=== PATIENT | female | born 1955 | race African-American/Black ===

== ENCOUNTER 2018-11-24 14:26 | Observation (INO) | payer SELFPAY ==
[2018-11-24] MEDS ORDERED: NORMAL SALINE 500 ML IV ONE (14:53)
--- NOTE | 2018-11-24 14:55 | ER Document Report ---
ED Medical Screen (RME) - General Chief Complaint: Weakness Stated Complaint: LEFT LEG WEAKNESS Time Seen by Provider: 11/24/18 14:40 Primary Care Provider: ANUM CARR MD [Primary Care Provider] - Follow up as needed Notes: Patient is a 63-year-old female that presents to the emergency department for chief complaint of left leg weakness, and constipation states she is been constipated for about a week or 2. States the weakness in the leg was about 3 days ago. ROS: Other than noted above, the 12 point review of systems was reviewed with the patient and were negative, all pertinent findings are included in the HPI. PHYSICAL EXAMINATION: Vital signs reviewed. GENERAL: Elderly female, no acute distress HEAD: Atraumatic, normocephalic. EYES: Pupils equal round extraocular movements intact, conjunctiva are normal. ENT: Nares patent NECK: Normal range of motion CV: Heart rate tachycardic, regular rhythm LUNGS: No respiratory distress Musculoskeletal: Left leg weakness compared to the right, decreased sensation on the right, good range of motion of the upper extremities NEUROLOGICAL: Normal speech PSYCH: Normal mood, normal affect. MDM: Patient seen and examined for rapid initial assessment. Vital signs reviewed. A comprehensive ED assessment and evaluation of the patient, analysis of test results and completion of the medical decision making process will be conducted by additional ED providers. *Note is created using voice recognition software and may contain spelling, syntax or grammatical errors. - Related Data Allergies/Adverse Reactions: enalapril Allergy (Verified 11/24/18 14:38) Past Medical History - Social History Frequency of alcohol use: None Drug Abuse: None - Past Medical History Cardiac Medical History: Reports: Hx Hypercholesterolemia Endocrine Medical History: Reports: Hx Diabetes Mellitus Type 1 Renal/ Medical History: Denies: Hx Peritoneal Dialysis Past Surgical History: Reports: Hx Bowel Surgery - polyp removal Physical Exam - Vital signs Vitals: Temp Pulse Resp BP Pulse Ox 98.3 F 113 H 18 144/70 H 98 11/24/18 14:27 11/24/18 14:27 11/24/18 14:11/24/18 14:11/24/18 14:27 Course - Vital Signs Vital signs: Temp Pulse Resp BP Pulse Ox 98.3 F 113 H 18 144/70 H 98 11/24/18 14:11/24/18 14:27 11/24/18 14:27 11/24/18 14:27 11/24/18 14:27 Doctor's Discharge - Discharge Referrals: ANUM CARR MD [Primary Care Provider] - Follow up as needed
--- NOTE | 2018-11-24 15:36 | RADIOLOGY REPORT (SQ) ---
EXAM DESCRIPTION: CHEST SINGLE VIEW COMPLETED DATE/TIME: 11/24/2018 3:25 pm REASON FOR STUDY: left leg weakness COMPARISON: None. EXAM PARAMETERS: NUMBER OF VIEWS: One view. TECHNIQUE: Single frontal radiographic view of the chest acquired. RADIATION DOSE: NA LIMITATIONS: None. FINDINGS: LUNGS AND PLEURA: No opacities, masses or pneumothorax. No pleural effusion. MEDIASTINUM AND HILAR STRUCTURES: No masses. Contour normal. HEART AND VASCULAR STRUCTURES: Heart normal in size. Normal vasculature. BONES: No acute findings. HARDWARE: None in the chest. OTHER: No other significant finding. IMPRESSION: NO ACUTE RADIOGRAPHIC FINDING IN THE CHEST. TECHNICAL DOCUMENTATION: JOB ID: [id number] [employer]- All Rights Reserved Reading location - IP/workstation name: [email or web address]
--- NOTE | 2018-11-24 15:47 | RADIOLOGY REPORT (SQ) ---
EXAM DESCRIPTION: CT HEAD WITHOUT COMPLETED DATE/TIME: 11/24/2018 3:38 pm REASON FOR STUDY: left leg weakness COMPARISON: None. TECHNIQUE: Axial images acquired through the brain without intravenous contrast. Images reviewed wi th bone, brain and subdural windows. Additional sagittal and coronal reconstructions were generated. Images stored on PACS. All CT scanners at this facility use dose modulation, iterative reconstruction, and/or weight based d osing when appropriate to reduce radiation dose to as low as reasonably achievable (ALARA). [facility]: Dose Right [facility]: CareDose [facility]: Dose Right [facility]: Teradose 4D [facility]: Smart [employer]atter[employer] RADIATION DOSE: CT Rad equipment meets quality standard of care and radiation dose reduction techniq ues were employed. CTDIvol: 53.2 mGy. DLP: 1070 mGy-cm. mGy. LIMITATIONS: None. FINDINGS: VENTRICLES: Normal size and contour. CEREBRUM: No masses. No hemorrhage. No midline shift. No evidence for acute infarction. Normal gra y/white matter differentiation. No areas of low density in the white matter. CEREBELLUM: No masses. No hemorrhage. No alteration of density. No evidence for acute infarction. EXTRAAXIAL SPACES: No fluid collections. No masses. ORBITS AND GLOBE: No intra- or extraconal masses. Normal contour of globe without masses. CALVARIUM: No fracture. PARANASAL SINUSES: No fluid or mucosal thickening. SOFT TISSUES: No mass or hematoma. OTHER: No other significant finding. IMPRESSION: No acute intracranial pathology. EVIDENCE OF ACUTE STROKE: NO. COMMENT: Quality ID # [id number]: Final reports with documentation of one or more dose reduction techniques (e.g., Automated exposure control, adjustment of the mA and/or kV according to patient size, use of iterative reconstruction technique) TECHNICAL DOCUMENTATION: JOB ID: [id number] [employer]- All Rights Reserved Reading location - IP/workstation name: [email or web address]
[2018-11-24 16:03] LABS: ABSOLUTE BASOPHILS # (AUTO) 0.1 10^3/uL (0.0-0.2); ABSOLUTE EOSINOPHILS # (AUTO) 0.1 10^3/uL (0.0-0.6); ABSOLUTE LYMPHOCYTES (AUTO) 2.8 10^3/uL (0.5-4.7); ABSOLUTE MONOCYTES (AUTO) 0.7 10^3/uL (0.1-1.4); ABSOLUTE NEUT (AUTO) 8.8 10^3/uL (1.7-8.2); BASOPHILS % (AUTO) 0.8 % (0-2); EOSINOPHILS % (AUTO) 0.7 % (0-6); HEMATOCRIT 36.8 % (36.0-47.0); HEMOGLOBIN 12.6 g/dL (12.0-15.5); LYMPHOCYTES % (AUTO) 22.6 % (13-45); MEAN CORPUSCULAR HEMOGLOBIN 28.6 pg (27.0-33.4); MEAN CORPUSCULAR HGB CONC 34.3 g/dL (32.0-36.0); MEAN CORPUSCULAR VOLUME 83 fl (80-97); MONOCYTES % (AUTO) 5.4 % (3-13); PLATELET COUNT 359 10^3/uL (150-450); RED BLOOD COUNT 4.42 10^6/uL (3.72-5.28); RED CELL DISTRIBUTION WIDTH 15.2 % (11.5-14.0); SEGMENTED NEUTROPHILS % (AUTO) 70.5 % (42-78); TOTAL CELLS COUNTED % (AUTO) 100 %; WHITE BLOOD COUNT 12.5 10^3/uL (4.0-10.5)
[2018-11-24 16:11] LABS: INTERNATIONAL RATION (INR) 0.93; PROTHROMBIN TIME 12.9 SEC (11.4-15.4)
[2018-11-24 16:20] LABS: ALANINE AMINOTRANSFERASE 14 U/L (9-52); ALBUMIN 3.9 g/dL (3.5-5.0); ALKALINE PHOSPHATASE 100 U/L (38-126); ANION GAP 13 (5-19); ASPARTATE AMINO TRANSFERASE 23 U/L (14-36); BILIRUBIN,DIRECT 0.4 mg/dL (0.0-0.4); BILIRUBIN,TOTAL 0.8 mg/dL (0.2-1.3); BLOOD UREA NITROGEN 18 mg/dL (7-20); CALCIUM 10.3 mg/dL (8.4-10.2); CARBON DIOXIDE 30 mmol/L (22-30); CHLORIDE 93 mmol/L (98-107); CREATINE KINASE 116 U/L (30-135); GLUCOSE 127 mg/dL (75-110); POTASSIUM 3.8 mmol/L (3.6-5.0); SODIUM 135.5 mmol/L (137-145); TOTAL PROTEIN 7.5 g/dL (6.3-8.2)
[2018-11-24 16:33] LABS: CREATINE KINASE MB 0.79 ng/mL (<4.55)
[2018-11-24 16:34] LABS: TROPONIN I < 0.012 ng/mL
--- NOTE | 2018-11-24 17:19 | ER Document Report ---
ED General - General Chief Complaint: Weakness Stated Complaint: LEFT LEG WEAKNESS Time Seen by Provider: 11/24/18 14:40 Primary Care Provider: ANUM CARR MD [Primary Care Provider] - Follow up as needed - [facility] Notes: Patient is a 63-year-old female with a history of diabetes and previously on insulin who presents the emergency department complaining of loss of strength and ability to ambulate to the left lower extremity. Patient states that she woke up Thursday morning not being able to use the left leg. Patient states that she does not have any associated pain. She has been eating and drinking without difficulty. She is still urinating normally, but reports constipation. Patient states that she did urinate on herself in the waiting room, but occurred because she could not get to the bathroom. She otherwise does not take any medicines orally at this time. Patient states that she has not been taking her insulin as she has not been eating as much. She does not have a primary care provider and lives at home with her . She is accompanied today by her family members who state that this is not normal for her not being able to ambulate and walk. No other concerns or complaints. She is not on any blood thinning medication. Denies any headache, fever, head injury, LOC, neck pain, changes in vision/speech/mentation/hearing, URI, sore throat, chest pain, palpitations, syncope, cough, shortness of breath, wheeze, dyspnea, abdominal pain, nausea/vomiting/diarrhea, urinary retention, dysuria, hematuria, loss of control of bowel or bladder, saddle anesthesia, or rash. - Related Data Allergies/Adverse Reactions: enalapril Allergy (Verified 11/24/18 14:38) Past Medical History - Social History Smoking Status: Current Some Day Smoker Frequency of alcohol use: None Drug Abuse: None Family History: Reviewed & Not Pertinent Patient has suicidal ideation: No Patient has homicidal ideation: No - Past Medical History Cardiac Medical History: Reports: Hx Hypercholesterolemia Endocrine Medical History: Reports: Hx Diabetes Mellitus Type 1 Renal/ Medical History: Denies: Hx Peritoneal Dialysis Past Surgical History: Reports: Hx Bowel Surgery - polyp removal Review of Systems - Review of Systems -: Yes All other systems reviewed and negative Physical Exam - Vital signs Vitals: Temp Pulse Resp BP Pulse Ox 98.3 F 113 H 18 144/70 H 98 11/24/18 14:27 11/24/18 14:27 11/24/18 14:27 11/24/18 14:27 11/24/18 14:27 - Notes Notes: PHYSICAL EXAMINATION: GENERAL: Well-appearing, well-nourished and in no acute distress. A&Ox4. Answers questions appropriately. HEAD: Atraumatic, normocephalic. Non-tender. EYES: Pupils equal round and reactive to light, extraocular movements intact, sclera anicteric, conjunctiva are normal. No nystagmus. vis murrya grossly intact. ENT: EAC clear b/l. TM's intact b/l without erythema, fluid, or perforation. Nares patent and without discharge. oropharynx clear without exudates. No tonsilar hypertrophy or erythema. Moist mucous membranes. No sinus tenderness. NECK: Normal range of motion, supple without lymphadenopathy. No rigidity/meningismus. No midline tenderness. LUNGS: Breath sounds clear to auscultation bilaterally and equal. No wheezes rales or rhonchi. HEART: Regular rate and rhythm without murmurs, rubs, gallops. ABDOMEN: Soft, nontender, nondistended abdomen. No guarding, no rebound. Normal bowel sounds present. No CVA tenderness bilaterally. Musculoskeletal: LLE: FROM to passive. Strength 0/5 aside from 4/5 foot dorsiflexion. Subjective dec sensation Lt worse than Rt. Ext's otherwise b/l: FROM to passive/active. Strength 5+/5. No deficits noted. No bony tenderness of extremities. Back: FROM. Strength 5+/5. Non-tender. No erythema or obvious deformity. Extremities: No cyanosis, clubbing, or edema b/l. Peripheral pulses 2+. Capillary refill less than 2 seconds. NEUROLOGICAL: NIH 4 (all with LLE deficits). GCS 15. Cranial nerves grossly intact. Normal speech. PSYCH: Normal mood, normal affect. SKIN: Warm, Dry, normal turgor, no rashes or lesions noted. Course - Re-evaluation Re-evalutation: 11/24/18 17:[address] Sanford. Admit for possible CVA. Spoke with Dr. Denise who accepted pt to [facility]. Patient is an afebrile, well-hydrated, 63-year-old female who presents emergency department with left lower extremity weakness, possibly secondary to CVA. Vitals are acceptable. PE as noted on exam. Labs and imaging were unremarkable including a CT scan. Patient is nontoxic-appearing and is tolerating p.o. without difficulty. Patient and family in agreement with admission and plan. - Vital Signs Vital signs: Temp Pulse Resp BP Pulse Ox 98.3 F 106 H 16 180/84 H 99 11/24/18 14:27 11/24/18 16:59 11/24/18 16:59 11/24/18 16:59 11/24/18 16:59 - Laboratory Result Diagrams: 11/24/18 15:41 11/24/18 15:41 Laboratory results interpreted by me: 11/24/18 11/24/18 15:41 15:41 WBC 12.5 H RDW 15.2 H Absolute Neutrophils 8.8 H Sodium 135.5 L Chloride 93 L Creatinine 0.31 L Glucose 127 H Calcium 10.3 H Discharge - Discharge Clinical Impression: Weakness of left leg Condition: Stable Disposition: ADMITTED INPATIENT Admitting Provider: Hospitalist - Dr. Denise Unit Admitted: IMCU Referrals: ANUM CARR MD [Primary Care Provider] - Follow up as needed
--- NOTE | 2018-11-24 17:48 | ER Document Report ---
Doctor's Note Notes: I personally and independently obtained patient history and examined the patient in conjunction with the APC and agree with the assessment, treatment plan and disposition of the patient as recorded by the APC, and have reviewed the APC's note. HISTORY OF PRESENT ILLNESS: Patient is a 63-year-old female that presents to the emergency department for chief complaint of left leg weakness. Patient apparently is been having symptoms for approximately 4 days now. She also reports she may have had low potassium recently. ROS: Constitutional: Negative for fever. Cardiovascular: Negative for chest pain. Respiratory: Negative for shortness of breath. Gastrointestinal: Negative for vomiting or abdominal pain Musculoskeletal: Negative for arm, leg or back pain Skin: Negative for rash. Neurological: Positive for left leg weakness Other than noted above, the 12 point review of systems was reviewed with the patient and were negative, all pertinent findings are included in the HPI. PHYSICAL EXAMINATION: Vital signs reviewed, nursing noted reviewed. GENERAL: elderly female, no acute distress HEAD: Atraumatic, normocephalic. EYES: Eyes appear normal, conjunctiva are normal. ENT: nares patent, oropharynx clear without exudates. Moist mucous membranes. NECK: Normal range of motion, supple without lymphadenopathy LUNGS: Breath sounds clear to auscultation bilaterally and equal. No wheezes rales or rhonchi. HEART: Heart rate tachycardic, regular rhythm ABDOMEN: Soft, nontender, normoactive bowel sounds. No rebound, guarding, or rigidity. No masses appreciated. EXTREMITIES: Nontender, good range of motion, no pitting or edema. NEUROLOGICAL: Left leg weakness, and decreased sensation in the left leg compared to the right. Upper extremities appeared unremarkable, no facial droop noted. No significant dysarthria. PSYCH: Normal mood, normal affect. SKIN: Warm, Dry, normal turgor, no rashes or lesions noted on exposed skin MEDICAL DECISION MAKING: Patient seen and examined, vital signs reviewed, on my exam the patient did have significant weakness in the left lower extremity as well as left leg numbness, patient was worked up for CVA, likely occurred a few days ago, CT imaging was negative, for any hemorrhage, and blood work was essentially unremarkable, recommend admission to the hospital, given stroke symptoms, for further workup and evaluation and physical therapy evaluation Please review detail APC documentation. *Note is created using voice recognition software and may contain spelling, syntax or grammatical errors. Laboratory 11/24/18 11/24/18 11/24/18 15:41 15:41 15:41 WBC 12.5 H RBC 4.42 Hgb 12.6 Hct 36.8 MCV 83 MCH 28.6 MCHC 34.3 RDW 15.2 H Plt Count 359 Seg Neutrophils % 70.5 Lymphocytes % 22.6 Monocytes % 5.4 Eosinophils % 0.7 Basophils % 0.8 Absolute Neutrophils 8.8 H Absolute Lymphocytes 2.8 Absolute Monocytes 0.7 Absolute Eosinophils 0.1 Absolute Basophils 0.1 PT 12.9 INR 0.93 Sodium 135.5 L Potassium 3.8 Chloride 93 L Carbon Dioxide 30 Anion Gap 13 BUN 18 Creatinine 0.31 L Est GFR ( Amer) > 60 Est GFR (Non-Af Amer) > 60 Glucose 127 H Hemoglobin A1c % Calcium 10.3 H Total Bilirubin 0.8 Direct Bilirubin 0.4 Neonat Total Bilirubin Not Reportable Neonat Direct Bilirubin Not Reportable Neonat Indirect Bili Not Reportable AST 23 ALT 14 Alkaline Phosphatase 100 Creatine Kinase 116 CK-MB (CK-2) Troponin I Total Protein 7.5 Albumin 3.9 Triglycerides Cholesterol LDL Cholesterol Direct VLDL Cholesterol HDL Cholesterol TSH 11/24/18 11/24/18 11/24/18 15:41 15:41 15:41 WBC RBC Hgb Hct MCV MCH MCHC RDW Plt Count Seg Neutrophils % Lymphocytes % Monocytes % Eosinophils % Basophils % Absolute Neutrophils Absolute Lymphocytes Absolute Monocytes Absolute Eosinophils Absolute Basophils PT INR Sodium Potassium Chloride Carbon Dioxide Anion Gap BUN Creatinine Est GFR ( Amer) Est GFR (Non-Af Amer) Glucose Hemoglobin A1c % Calcium Total Bilirubin Direct Bilirubin Neonat Total Bilirubin Neonat Direct Bilirubin Neonat Indirect Bili AST ALT Alkaline Phosphatase Creatine Kinase CK-MB (CK-2) 0.79 Troponin I < 0.012 Total Protein Albumin Triglycerides 107 Cholesterol 228.65 H LDL Cholesterol Direct 159 H VLDL Cholesterol 21.0 HDL Cholesterol 38 L TSH 1.36 11/24/18 15:41 WBC RBC Hgb Hct MCV MCH MCHC RDW Plt Count Seg Neutrophils % Lymphocytes % Monocytes % Eosinophils % Basophils % Absolute Neutrophils Absolute Lymphocytes Absolute Monocytes Absolute Eosinophils Absolute Basophils PT INR Sodium Potassium Chloride Carbon Dioxide Anion Gap BUN Creatinine Est GFR ( Amer) Est GFR (Non-Af Amer) Glucose Hemoglobin A1c % 6.4 H Calcium Total Bilirubin Direct Bilirubin Neonat Total Bilirubin Neonat Direct Bilirubin Neonat Indirect Bili AST ALT Alkaline Phosphatase Creatine Kinase CK-MB (CK-2) Troponin I Total Protein Albumin Triglycerides Cholesterol LDL Cholesterol Direct VLDL Cholesterol HDL Cholesterol TSH Chest X-Ray 11/24/18 14:52 IMPRESSION: NO ACUTE RADIOGRAPHIC FINDING IN THE CHEST. Head CT 11/24/18 14:53 IMPRESSION: No acute intracranial pathology. EVIDENCE OF ACUTE STROKE: NO.
[2018-11-24] MEDS ORDERED: HYDRALAZINE HCL INJ/PF 20 MG/1 ML SDV IV PRN (18:04)
--- NOTE | 2018-11-24 18:15 | PDOC H&P ---
History of Present Illness Admission Date/PCP: ANUM CARR MD Patient complains of: left leg weakness History of Present Illness: VALENTIN LINDSEY is a 63 year old female who does not see a regular physician due to not having insurance who presented with left leg weakness. She only reports a PMH of gestational DM but says she still uses a 70/30 insulin 2 units bid occasionally and also reports a previous history of hypothyroidism. Denies any other medication aside from 70/30. Patient was apparently fine until Thursday morning when she woke up and noticed she has left leg weakness associated with some numbness. She says she did not see a doctor because she does not have insurance. She has beenhaving issues with ambulating at home and was prompted by family to go to the ER today where she was noted to have left leg weakness. No speech problems. She denies headache or dizziness. She also reports of having had a dental abscess in August treated with amoxicillin. Past Medical History Cardiac Medical History: Reports: Hyperlipidema Endocrine Medical History: Reports: Diabetes Mellitus Type 1 Social History Smoking Status: Current Some Day Smoker Family History Family History: Reviewed & Not Pertinent Parental Family History Reviewed: Yes - no premature CAD Children Family History Reviewed: No Sibling(s) Family History Reviewed.: No Medication/Allergy Allergies/Adverse Reactions: enalapril Allergy (Verified 11/24/18 14:38) Review of Systems All systems: reviewed and no additional remarkable complaints except as stated - as mentioned in HPI Physical Exam Vital Signs: Temp Pulse Resp BP Pulse Ox 98.3 F 106 H 16 180/84 H 99 11/24/18 14:27 11/24/18 16:59 11/24/18 16:59 11/24/18 16:59 11/24/18 16:59 Intake & Output 11/23/18 11/24/18 11/25/18 06:59 06:59 06:59 Intake Total 500 Balance 500 Weight 88 lb 10.013 oz General appearance: PRESENT: no acute distress, well-developed, well-nourished Head exam: PRESENT: atraumatic, normocephalic Eye exam: PRESENT: conjunctiva pink, EOMI, PERRLA. ABSENT: scleral icterus Ear exam: PRESENT: normal external ear exam Mouth exam: PRESENT: moist, tongue midline Neck exam: ABSENT: carotid bruit, JVD, lymphadenopathy, thyromegaly Respiratory exam: PRESENT: clear to auscultation avinash. ABSENT: rales, rhonchi, wheezes Cardiovascular exam: PRESENT: RRR. ABSENT: diastolic murmur, rubs, systolic murmur Pulses: PRESENT: normal dorsalis pedis pul GI/Abdominal exam: PRESENT: normal bowel sounds, soft. ABSENT: distended, guarding, mass, organolmegaly, rebound, tenderness Rectal exam: PRESENT: deferred Neurological exam: PRESENT: alert, awake, oriented to person, oriented to place, oriented to time, oriented to situation, CN II-XII grossly intact, motor sensory deficit - 2/5 motor strength on the left leg, slightly reduced sensation to touch on left leg Results Laboratory Results: 11/24/18 15:41 11/24/18 15:41 11/24/18 11/24/18 15:41 15:41 WBC 12.5 H RBC 4.42 Hgb 12.6 Hct 36.8 MCV 83 MCH 28.6 MCHC 34.3 RDW 15.2 H Plt Count 359 Seg Neutrophils % 70.5 Lymphocytes % 22.6 Monocytes % 5.4 Eosinophils % 0.7 Basophils % 0.8 Absolute Neutrophils 8.8 H Absolute Lymphocytes 2.8 Absolute Monocytes 0.7 Absolute Eosinophils 0.1 Absolute Basophils 0.1 Sodium 135.5 L Potassium 3.8 Chloride 93 L Carbon Dioxide 30 Anion Gap 13 BUN 18 Creatinine 0.31 L Est GFR ( Amer) > 60 Est GFR (Non-Af Amer) > 60 Glucose 127 H Calcium 10.3 H Total Bilirubin 0.8 AST 23 ALT 14 Alkaline Phosphatase 100 Total Protein 7.5 Albumin 3.9 11/24/18 11/24/18 15:41 15:41 Creatine Kinase 116 CK-MB (CK-2) 0.79 Troponin I < 0.012 Impressions: Chest X-Ray 11/24/18 14:52 IMPRESSION: NO ACUTE RADIOGRAPHIC FINDING IN THE CHEST. Head CT 11/24/18 14:53 IMPRESSION: No acute intracranial pathology. EVIDENCE OF ACUTE STROKE: NO. Assessment and Plan - Diagnosis (1) CVA (cerebral vascular accident) Is this a current diagnosis for this admission?: Yes Plan: Patient is presenting with new left leg weakness noticed when she woke up last Thursday morning. She likely now has subacute CVA. She has 2/5 motor strength on the left leg, slightly reduced sensation to touch on left leg CT head is negative. Will order an MRI of the head. Will start aspirin and statin. Doppler US and overnight telemetry. (2) Hypertension Is this a current diagnosis for this admission?: Yes Plan: Blood pressure in the 180/90. She is not on any antihypetensive. She is tachycardic in the 110s. Will start Carvedilol. Hydralazine rpn. Will adjust or add antihypertensive depending on subsequent blood pressures. (3) Diabetes mellitus Is this a current diagnosis for this admission?: Yes Plan: She reports a history of gestational DM and says she uses a 70/30. She says she was on 25 u bid before but is only using 2 u once a day now. Will check an Hba1c. She needs further diabetic education if her A1c is still in diabetic range. - Time Time Spent with patient: 35 or more minutes
--- NOTE | 2018-11-24 18:17 | ADVANCED CARE ---
- Diagnosis (1) CVA (cerebral vascular accident) Diagnosis Current: Yes (2) Hypertension Diagnosis Current: Yes (3) Diabetes mellitus Diagnosis Current: Yes Resuscitation Status: Full Code Discussion: Discussed with patient and family including on on bedside. She says she is wants full resuscitation at this time but does not want fci ventilation. She is undecided if she wants her or son to be the DPOA or surrogate decision maker and will further discuss this with them.
[2018-11-24 18:34] LABS: CHOLESTEROL 228.65 mg/dL (0-200); TRIGLYCERIDES 107 mg/dL (<150)
[2018-11-24 18:45] LABS: DIRECT LDL 159 mg/dL (<100)
[2018-11-24 18:47] LABS: APPEARANCE,URINE CLEAR; BILIRUBIN,URINE NEGATIVE (NEGATIVE); COLOR,URINE AMBER; GLUCOSE, URINE NEGATIVE (NEGATIVE); KETONES,URINE TRACE mg/dL (NEGATIVE); LEUKOCYTE ESTERASE,URINE NEGATIVE (NEGATIVE); NITRITE,URINE NEGATIVE (NEGATIVE); PROTEIN,URINE NEGATIVE (NEGATIVE); URINE SPECIFIC GRAVITY 1.021
--- NOTE | 2018-11-24 21:10 | RADIOLOGY REPORT (SQ) ---
MR BRAIN WITHOUT IV CONTRAST HISTORY: Left-sided weakness COMPARISON: CT scan from earlier the same day. TECHNIQUE: Multisequence, multiplanar MR imaging of the brain was performed without the administration of intravenous gadolinium. Motion artifact limits evaluation. FINDINGS: Very limited study due to motion artifact. There is no abnormal signal within the brain parenchyma to suggest acute infarction or intracranial hemorrhage. IMPRESSION: Very limited study due to motion artifact. However, no acute infarction or intracranial hemorrhage is seen.
--- NOTE | 2018-11-24 21:24 | EKG REPORT ---
SEVERITY:- ABNORMAL ECG - SINUS TACHYCARDIA PROBABLE LEFT ATRIAL ABNORMALITY PROBABLE LVH WITH SECONDARY REPOL ABNRM : Confirmed by: Brittney Alexander MD 24-Nov-2018 21:23:06
[2018-11-24] MEDS: CARVEDILOL 6.25 MG TABLET PO SCH (23:11)
[2018-11-24] MEDS: ATORVASTATIN CALCIUM 40 MG TABLET PO SCH (23:12)
[2018-11-24] MEDS ORDERED: DOXYCYCLINE HYCLATE 100 MG TABLET PO ONE (23:30)
[2018-11-24] MEDS: ACETAMINOPHEN 325 MG TABLET PO PRN (23:42)
--- NOTE | 2018-11-25 01:51 | RADIOLOGY REPORT (SQ) ---
EXAM DESCRIPTION: US CAROTID DOPPLER BILATERAL COMPLETED DATE/TME: 11/24/2018 00:00 CLINICAL HISTORY: 63 years Female, cva Comparison: None. TECHNIQUE: Doppler sonogram LIMITATIONS: Body habitus. Positioning. FINDINGS: RIGHT SIDE Peak systolic velocity (PSV) and End diastolic velocity (EDV) listed below. RCCA - Common carotid artery PSV: 98 cm/s EDV: 18 cm/s YANCI - Internal carotid artery PSV: 93 cm/s EDV: 28 cm/s YANCI/RCCA: RECA - External carotid artery PSV: 86 cm/s RVA - Vertebral artery Antegrade Other: Noncalcified plaque involves the carotid sinus. LEFT SIDE Peak systolic velocity (PSV) and End diastolic velocity (EDV) listed below. LCCA - Common carotid artery PSV: 134 cm/s EDV: 20 cm/s LICA - Internal carotid artery PSV: 77 cm/s EDV: 19 cm/s LICA/LCCA: LECA - External carotid artery PSV: 197 cm/s LVA - Vertebral artery obscured. Other: Noncalcified plaque at the carotid sinus. Impression: 1. Right internal carotid artery: No stenosis. 2. Left internal carotid artery: No stenosis. 3. Limitations. Nonvisualized left vertebral artery.
[2018-11-25] MEDS ORDERED: DOXYCYCLINE HYCLATE 100 MG TABLET PO SCH (10:00)
[2018-11-25] MEDS: ASPIRIN 81 MG TABLET, CHEWABLE PO SCH (12:03)
[2018-11-25] MEDS: CARVEDILOL 6.25 MG TABLET PO SCH (12:03)
[2018-11-25] MEDS: FONDAPARINUX SODIUM INJ 2.5 MG/0.5 ML DISP.SYRIN SUBCUT SCH (12:04)
[2018-11-25] MEDS: ACETAMINOPHEN 325 MG TABLET PO PRN (12:05)
--- NOTE | 2018-11-25 14:40 | PDOC PROGRESS REPORT ---
Subjective Progress Note for:: 11/25/18 Subjective:: This is a 63 year old female who does not see a regular physician due to not having insurance who presented with left leg weakness and numbness which developed last Thursday. She was admitted for presumed subacute CVA. No acute event overnight. MRI brain was a limited study but no signs of infarction was noted. On reassessment this morning, her left leg weakness ap pears to have slightly improved. She has good strength on flexion/extension of her ankles (4/5) and appears to have a more proximal weakness when asked to bend her left knee or flex her hip (2/5). She says the numbness has also improved and is almost back to baseline. Tried to stand patient up with staff and she is not able to do so due to left LE weakness. Clonus and Babinski not appreciated on b oth sides. Reason For Visit: SUBACUTE CVA Physical Exam Vital Signs: Temp Pulse Resp BP Pulse Ox 98.2 F 99 18 161/75 H 98 11/25/18 10:52 11/25/18 10:52 11/25/18 10:52 11/25/18 10:52 11/25/18 10:52 Intake & Output 11/24/18 11/25/18 11/26/18 06:59 06:59 06:59 Intake Total 1117 450 Output Total 1248 200 Balance -131 250 Weight 87 lb 11.904 oz General appearance: PRESENT: no acute distress, well-developed, well-nourished Head exam: PRESENT: atraumatic, normocephalic Eye exam: PRESENT: conjunctiva pink, EOMI, PERRLA. ABSENT: scleral icterus Ear exam: PRESENT: normal external ear exam Mouth exam: PRESENT: moist, tongue midline Neck exam: ABSENT: carotid bruit, JVD, lymphadenopathy, thyromegaly Respiratory exam: PRESENT: clear to auscultation avinash. ABSENT: rales, rhonchi, wheezes Cardiovascular exam: PRESENT: RRR. ABSENT: diastolic murmur, rubs, systolic murmur Pulses: PRESENT: normal dorsalis pedis pul GI/Abdominal exam: PRESENT: normal bowel sounds, soft. ABSENT: distended, guarding, mass, organolmegaly, rebound, tenderness Rectal exam: PRESENT: deferred Neurological exam: PRESENT: alert, awake, oriented to person, oriented to place, oriented to time, oriented to situation, CN II-XII grossly intact, motor sensory deficit - Her left leg weakness appears to have slightly improved. She has good strength on flexion/extension of her ankles 4/5 and appears to have a more proximal weakness when asked to bend her left knee or flex her hip 2/5. Results Laboratory Results: 11/24/18 15:41 11/24/18 15:41 11/24/18 11/24/18 11/24/18 15:41 15:41 15:41 WBC 12.5 H RBC 4.42 Hgb 12.6 Hct 36.8 MCV 83 MCH 28.6 MCHC 34.3 RDW 15.2 H Plt Count 359 Seg Neutrophils % 70.5 Lymphocytes % 22.6 Monocytes % 5.4 Eosinophils % 0.7 Basophils % 0.8 Absolute Neutrophils 8.8 H Absolute Lymphocytes 2.8 Absolute Monocytes 0.7 Absolute Eosinophils 0.1 Absolute Basophils 0.1 Sodium 135.5 L Potassium 3.8 Chloride 93 L Carbon Dioxide 30 Anion Gap 13 BUN 18 Creatinine 0.31 L Est GFR ( Amer) > 60 Est GFR (Non-Af Amer) > 60 Glucose 127 H Calcium 10.3 H Total Bilirubin 0.8 AST 23 ALT 14 Alkaline Phosphatase 100 Total Protein 7.5 Albumin 3.9 Triglycerides Cholesterol LDL Cholesterol Direct VLDL Cholesterol HDL Cholesterol TSH 1.36 Urine Color Urine Appearance Urine pH Ur Specific [place] Urine Protein Urine Glucose (UA) Urine Ketones Urine Blood Urine Nitrite Ur Leukocyte Esterase Urine WBC (Auto) Urine RBC (Auto) 11/24/18 11/24/18 15:41 18:17 WBC RBC Hgb Hct MCV MCH MCHC RDW Plt Count Seg Neutrophils % Lymphocytes % Monocytes % Eosinophils % Basophils % Absolute Neutrophils Absolute Lymphocytes Absolute Monocytes Absolute Eosinophils Absolute Basophils Sodium Potassium Chloride Carbon Dioxide Anion Gap BUN Creatinine Est GFR ( Amer) Est GFR (Non-Af Amer) Glucose Calcium Total Bilirubin AST ALT Alkaline Phosphatase Total Protein Albumin Triglycerides 107 Cholesterol 228.65 H LDL Cholesterol Direct 159 H VLDL Cholesterol 21.0 HDL Cholesterol 38 L TSH Urine Color ARSH Urine Appearance CLEAR Urine pH 5.0 Ur Specific [place] 1.021 Urine Protein NEGATIVE Urine Glucose (UA) NEGATIVE Urine Ketones TRACE H Urine Blood NEGATIVE Urine Nitrite NEGATIVE Ur Leukocyte Esterase NEGATIVE Urine WBC (Auto) 0 Urine RBC (Auto) 1 11/24/18 11/24/18 15:41 15:41 Creatine Kinase 116 CK-MB (CK-2) 0.79 Troponin I < 0.012 Impressions: Chest X-Ray 11/24/18 14:52 IMPRESSION: NO ACUTE RADIOGRAPHIC FINDING IN THE CHEST. Head CT 11/24/18 14:53 IMPRESSION: No acute intracranial pathology. EVIDENCE OF ACUTE STROKE: NO. Head MRI 11/24/18 17:59 IMPRESSION: Very limited study due to motion artifact. However, no acute infarction or intracranial hemorrhage is seen. Assessment and Plan - Diagnosis (1) CVA (cerebral vascular accident) Is this a current diagnosis for this admission?: Yes Plan: Patient is presenting with new left leg weakness noticed when she woke up last Thursday morning. She likely now has subacute CVA. She has 2/5 motor strength on the left leg, slightly reduced sensation to touch on left leg CT head is negative. 11/25: MRI head was unrevealing for CVA. Carotid doppler and tele monitoring were also unremarkable. MRI brain was a limited study but no signs of infarction was noted. On reassessment this morning, her left leg weakness appears to have slightly improved. She has good strength on flexion/extension of her ankles (4/5) and appears to have a more proximal weakness when asked to bend her left knee or flex her hip (2/5). She says the numbness has also improved and is almost back to baseline. Tried to stand patient up with staff and she is not able to do so due to left LE weakness. Clonus and Babinski not appreciated on both sides. Await PT eval. Will pursue a lumbosacral MRI if she has persistent left leg weakness. (2) Hypertension Is this a current diagnosis for this admission?: Yes Plan: Blood pressure in the 180/90. She is not on any antihypetensive. She is tachycardic in the 110s. Will start Carvedilol. Hydralazine rpn. Will adjust or add antihypertensive depending on subsequent blood pressures. 11/25: Increase Coreg to 12.5 mg bid. (3) Diabetes mellitus Is this a current diagnosis for this admission?: Yes Plan: She reports a history of gestational DM and says she uses a 70/30. She says she was on 25 u bid before but is only using 2 u once a day now. Will check an Hba1c. She needs further diabetic education if her A1c is still in diabetic range. 11/25: Hba1c came back at 6.4. Advised patient she does not need to continue her insulin at home. (4) Malnutrition Is this a current diagnosis for this admission?: Yes Plan: Will consult dietitian for recommendations. Patient also reports of poor intake due to her chronic dental pain and dental issues. - Time Time Spent with patient: 25-34 minutes
[2018-11-25] MEDS ORDERED: NORMAL SALINE 1000 ML 1,000 ML IV PRN (14:42)
--- NOTE | 2018-11-25 14:56 | RADIOLOGY REPORT (SQ) ---
EXAM DESCRIPTION: HIP LEFT AP/LATERAL COMPLETED DATE/TIME: 11/25/2018 2:30 pm REASON FOR STUDY: hip pain COMPARISON: None. NUMBER OF VIEWS: Two views. TECHNIQUE: AP pelvis and additional frog-leg view of the left hip. LIMITATIONS: None. FINDINGS: MINERALIZATION: Normal. LEFT HIP: No fracture or dislocation. No worrisome bone lesions. RIGHT HIP: No fracture or dislocation. No worrisome bone lesions. PUBIS AND ISCHIUM: No fracture. PELVIS: No fracture. SACRUM: No fracture or dislocation. No worrisome bone lesions. LOWER LUMBAR SPINE: No fracture or dislocation. No worrisome bone lesions. No significant disc disea se. SOFT TISSUES: No findings. OTHER: No other significant finding. IMPRESSION: NEGATIVE STUDY OF THE LEFT HIP AND PELVIS. NO RADIOGRAPHIC EVIDENCE OF ACUTE INJURY. TECHNICAL DOCUMENTATION: JOB ID: [id number] [employer]- All Rights Reserved Reading location - IP/workstation name: [email or web address]
[2018-11-25] MEDS ORDERED: SENNOSIDES/DOCUSATE 8.6-50 MG 1 EACH TABLET PO PRN (16:47)
[2018-11-25 17:01] LABS: ABSOLUTE BASOPHILS # (AUTO) 0.1 10^3/uL (0.0-0.2); ABSOLUTE EOSINOPHILS # (AUTO) 0.2 10^3/uL (0.0-0.6); ABSOLUTE LYMPHOCYTES (AUTO) 3.1 10^3/uL (0.5-4.7); ABSOLUTE MONOCYTES (AUTO) 0.8 10^3/uL (0.1-1.4); ABSOLUTE NEUT (AUTO) 6.9 10^3/uL (1.7-8.2); BASOPHILS % (AUTO) 0.9 % (0-2); EOSINOPHILS % (AUTO) 1.5 % (0-6); HEMATOCRIT 31.4 % (36.0-47.0); HEMOGLOBIN 10.8 g/dL (12.0-15.5); MEAN CORPUSCULAR HEMOGLOBIN 28.5 pg (27.0-33.4); MEAN CORPUSCULAR HGB CONC 34.4 g/dL (32.0-36.0); MEAN CORPUSCULAR VOLUME 83 fl (80-97); MONOCYTES % (AUTO) 7.1 % (3-13); PLATELET COUNT 314 10^3/uL (150-450); RED BLOOD COUNT 3.78 10^6/uL (3.72-5.28); RED CELL DISTRIBUTION WIDTH 15.1 % (11.5-14.0); SEGMENTED NEUTROPHILS % (AUTO) 62.5 % (42-78); TOTAL CELLS COUNTED % (AUTO) 100 %; WHITE BLOOD COUNT 11.1 10^3/uL (4.0-10.5)
[2018-11-25 17:22] LABS: ALANINE AMINOTRANSFERASE 18 U/L (9-52); ALBUMIN 3.2 g/dL (3.5-5.0); ALKALINE PHOSPHATASE 90 U/L (38-126); ANION GAP 7 (5-19); ASPARTATE AMINO TRANSFERASE 18 U/L (14-36); BILIRUBIN,DIRECT 0.3 mg/dL (0.0-0.4); BILIRUBIN,TOTAL 0.5 mg/dL (0.2-1.3); BLOOD UREA NITROGEN 12 mg/dL (7-20); CALCIUM 9.4 mg/dL (8.4-10.2); CARBON DIOXIDE 29 mmol/L (22-30); CHLORIDE 99 mmol/L (98-107); GLUCOSE 130 mg/dL (75-110); SODIUM 134.7 mmol/L (137-145); TOTAL PROTEIN 6.1 g/dL (6.3-8.2)
[2018-11-25] MEDS ORDERED: IBUPROFEN 400 MG TABLET PO ONE (17:45)
[2018-11-25] MEDS: AMOXICILLIN TR/POT CLAVULANATE 500-125 MG TAB PO SCH (22:18)
[2018-11-25] MEDS: CARVEDILOL 12.5 MG TABLET PO SCH (22:18)
[2018-11-25] MEDS: ATORVASTATIN CALCIUM 40 MG TABLET PO SCH (22:18)
[2018-11-26] MEDS ORDERED: ONDANSETRON HCL INJ/PF 4 MG/2 ML SDV IV ONE (03:00)
[2018-11-26] MEDS: AMOXICILLIN TR/POT CLAVULANATE 500-125 MG TAB PO SCH ×3 (05:49→21:34)
[2018-11-26] MEDS: CARVEDILOL 12.5 MG TABLET PO SCH ×3 (09:48→23:25)
[2018-11-26] MEDS: FONDAPARINUX SODIUM INJ 2.5 MG/0.5 ML DISP.SYRIN SUBCUT SCH (09:50)
[2018-11-26] MEDS: ASPIRIN 81 MG TABLET, CHEWABLE PO SCH (09:50)
--- NOTE | 2018-11-26 12:27 | RADIOLOGY REPORT (SQ) ---
EXAM DESCRIPTION: MRI LUMBAR SPINE WITHOUT COMPLETED DATE/TIME: 11/26/2018 12:10 pm REASON FOR STUDY: perisstent left leg weakness,normal brain MRI COMPARISON: Motion. TECHNIQUE: Sagittal and Axial imaging includes T1, T2, STIR and gradient echo sequences. Coronal T2/ HASTE imaging. LIMITATIONS: None. FINDINGS: VISUALIZED UPPER ABDOMEN: Limited evaluation. No acute or suspicious findings suggested. SEGMENTATION: No transitional anatomy. The lowest well-developed disc space is labeled L5-S1. ALIGNMENT: Slight anterolisthesis L4 relative to L5. VERTEBRAE: Intact. BONE MARROW: Normal. No marrow replacement or reactive changes. DISC SIGNAL: Desiccation L5-S1. POSTERIOR ELEMENTS: Generally intact. No pars defect evident. HARDWARE: None in the spine. CORD AND CONUS: Normal in size and signal intensity. Conus at the appropriate level. SOFT TISSUES: No aortic aneurysm seen. No bulky retroperitoneal adenopathy or mass. No paraspinal mas s or fluid. L1-L2: No significant spinal stenosis or exit foraminal stenosis. L2-L3: No significant spinal stenosis or exit foraminal stenosis. L3-L4: No significant spinal stenosis or exit foraminal stenosis. L4-L5: Disc bulge and facet arthropathy. No significant stenosis. L5-S1: Disc bulge and facet arthropathy. No significant stenosis. LOWER THORACIC: Incompletely imaged. No stenosis seen. SACRUM: Visualized upper sacrum intact. OTHER: No other significant findings. IMPRESSION: Facet arthropathy. No acute findings. TECHNICAL DOCUMENTATION: JOB ID: [id number] [employer]- All Rights Reserved Reading location - IP/workstation name: [email or web address]
--- NOTE | 2018-11-26 15:09 | PDOC PROGRESS REPORT ---
Subjective Progress Note for:: 11/26/18 Subjective:: This is a 63 year old female who does not see a regular physician due to not having insurance who presented with left leg weakness and numbness which developed last Thursday. She was admitted for presumed subacute CVA. 11/25: MRI brain was a limited/suboptimal study but no signs of infarction was noted. On reassessment this morning, her left leg weakness appears to have slightly improved. She has good strength on flexion/extension of her ankles (4/5) and appears to have a more proximal weakness when asked to bend her left knee or flex her hip (2/5). She says the numbness has also improved and is almost back to baseline. Tried to stand patient up with staff and she is not able to do so due to left LE weakness. Clonus and Babinski not appreciated on both sides. 11/26: No acute event overnight. She continues to have left leg weakness albeit it has improved compared to when she presented it. She says the numbness has resolved. She has been evaluated by PT and she is not able to stand and support herself. Recommended SNF/rehab. She may benefit from acute rehab, will consult Dr. Lopez for evaluation. Reason For Visit: SUBACUTE CVA Physical Exam Vital Signs: Temp Pulse Resp BP Pulse Ox 98.0 F 87 14 125/59 L 100 11/26/18 12:44 11/26/18 12:44 11/26/18 12:44 11/26/18 12:44 11/26/18 12:44 Intake & Output 11/25/18 11/26/18 11/27/18 06:59 06:59 06:59 Intake Total 1117 1130 Output Total 1248 700 Balance -131 430 Weight 87 lb 11.904 oz 93 lb 0.561 oz General appearance: PRESENT: no acute distress, well-developed, well-nourished Head exam: PRESENT: atraumatic, normocephalic Eye exam: PRESENT: conjunctiva pink, EOMI, PERRLA. ABSENT: scleral icterus Ear exam: PRESENT: normal external ear exam Mouth exam: PRESENT: moist, tongue midline Neck exam: ABSENT: carotid bruit, JVD, lymphadenopathy, thyromegaly Respiratory exam: PRESENT: clear to auscultation avinash. ABSENT: rales, rhonchi, wheezes Pulses: PRESENT: normal dorsalis pedis pul Rectal exam: PRESENT: deferred Neurological exam: PRESENT: alert, awake, oriented to person, oriented to place, oriented to time, oriented to situation, CN II-XII grossly intact, motor sensory deficit - left leg weakness Results Laboratory Results: 11/25/18 16:23 11/25/18 16:23 11/25/18 11/25/18 16:23 16:23 WBC 11.1 H RBC 3.78 Hgb 10.8 L Hct 31.4 L MCV 83 MCH 28.5 MCHC 34.4 RDW 15.1 H Plt Count 314 Seg Neutrophils % 62.5 Lymphocytes % 28.0 Monocytes % 7.1 Eosinophils % 1.5 Basophils % 0.9 Absolute Neutrophils 6.9 Absolute Lymphocytes 3.1 Absolute Monocytes 0.8 Absolute Eosinophils 0.2 Absolute Basophils 0.1 Sodium 134.7 L Potassium 4.0 Chloride 99 Carbon Dioxide 29 Anion Gap 7 BUN 12 Creatinine 0.38 L Est GFR ( Amer) > 60 Est GFR (Non-Af Amer) > 60 Glucose 130 H Calcium 9.4 Magnesium 1.7 Total Bilirubin 0.5 AST 18 ALT 18 Alkaline Phosphatase 90 Total Protein 6.1 L Albumin 3.2 L 11/24/18 18:17 Catheterized Urine Urine Culture - Final NO GROWTH 2 DAYS 11/24/18 11/24/18 15:41 15:41 Creatine Kinase 116 CK-MB (CK-2) 0.79 Troponin I < 0.012 Impressions: Chest X-Ray 11/24/18 14:52 IMPRESSION: NO ACUTE RADIOGRAPHIC FINDING IN THE CHEST. Head CT 11/24/18 14:53 IMPRESSION: No acute intracranial pathology. EVIDENCE OF ACUTE STROKE: NO. Head MRI 11/24/18 17:59 IMPRESSION: Very limited study due to motion artifact. However, no acute infarction or intracranial hemorrhage is seen. Hip X-Ray 11/25/18 12:01 IMPRESSION: NEGATIVE STUDY OF THE LEFT HIP AND PELVIS. NO RADIOGRAPHIC EVIDENCE OF ACUTE INJURY. Lumbar Spine MRI 11/26/18 00:00 IMPRESSION: Facet arthropathy. No acute findings. Assessment and Plan - Diagnosis (1) CVA (cerebral vascular accident) Is this a current diagnosis for this admission?: Yes Plan: Patient is presenting with new left leg weakness noticed when she woke up last Thursday morning. She likely now has subacute CVA. She has 2/5 motor strength on the left leg, slightly reduced sensation to touch on left leg CT head is negative. 11/25: MRI head was unrevealing for CVA but study was suboptimal/poor one. Carotid doppler and tele monitoring were also unremarkable. MRI brain was a limited study but no signs of infarction was noted. On reassessment this morning, her left leg weakness appears to have slightly improved. She has good strength on flexion/extension of her ankles (4/5) and appears to have a more proximal weakness when asked to bend her left knee or flex her hip (2/5). She says the numbness has also improved and is almost back to baseline. Tried to stand patient up with staff and she is not able to do so due to left LE wea kness. Clonus and Babinski not appreciated on both sides. 11/26: She continues to have left leg weakness albeit it has improved compared to when she presented it. Lumbosacral MRI was negative. She says the numbness has resolved. She has been evaluated by PT and she is not able to stand and support herself. Recommended SNF/rehab. She may benefit from acute rehab, will consult Dr. Lopez for evaluation. (2) Hypertension Is this a current diagnosis for this admission?: Yes Plan: Blood pressure in the 180/90. She is not on any antihypetensive. She is tachycardic in the 110s. Will start Carvedilol. Hydralazine rpn. Will adjust or add antihypertensive depending on subsequent blood pressures. 11/25: Increase Coreg to 12.5 mg bid. 11/26: Controlled. Continue Coreg. (3) Diabetes mellitus Is this a current diagnosis for this admission?: Yes Plan: She reports a history of gestational DM and says she uses a 70/30. She says she was on 25 u bid before but is only using 2 u once a day now. Will check an Hba1c. She needs further diabetic education if her A1c is still in diabetic range. 11/25: Hba1c came back at 6.4. Advised patient she does not need to continue her insulin at home. (4) Malnutrition Is this a current diagnosis for this admission?: Yes Plan: Will consult dietitian for recommendations. Patient also reports of poor intake due to her chronic dental pain and dental issues. Appreciate dietitian recommendation. - Time Time Spent with patient: 25-34 minutes
[2018-11-26] MEDS: ATORVASTATIN CALCIUM 40 MG TABLET PO SCH (21:34)
[2018-11-26] MEDS: ACETAMINOPHEN 325 MG TABLET PO PRN (23:25)
[2018-11-27] MEDS: AMOXICILLIN TR/POT CLAVULANATE 500-125 MG TAB PO SCH ×3 (06:10→22:19)
[2018-11-27] MEDS: CARVEDILOL 12.5 MG TABLET PO SCH ×2 (10:01→22:18)
[2018-11-27] MEDS: ASPIRIN 81 MG TABLET, CHEWABLE PO SCH (10:02)
[2018-11-27] MEDS: FONDAPARINUX SODIUM INJ 2.5 MG/0.5 ML DISP.SYRIN SUBCUT SCH (10:02)
--- NOTE | 2018-11-27 16:02 | RADIOLOGY REPORT (SQ) ---
EXAM DESCRIPTION: MRI HEAD WITHOUT COMPLETED DATE/TIME: 11/27/2018 3:43 pm REASON FOR STUDY: repeat brain MRI per rehab MD COMPARISON: CT dated 11/24/2018. TECHNIQUE: Multiplanar imaging includes non-contrasted T1, T2, FLAIR, and Diffusion with ADC map seq uences. Images stored on PACS. LIMITATIONS: None. FINDINGS: ANATOMY: No anomalies. Normal vascular flow voids. Pituitary fossa normal. CSF SPACES: Normal in size and contour. No hemorrhage. CEREBRUM: A few high-signal intensity lesions scattered throughout the white matter on FLAIR imaging with distribution suggesting chronic micro-vascular ischemic change. Sulci and gyri normal in size a nd contour. No evidence of hemorrhage, mass or extraaxial fluid collection. POSTERIOR FOSSA: No signal alteration. No hemorrhage. No edema, masses or mass effect. Internal donita tory canals, cerebello-pontine angles, mastoids normal. DIFFUSION: Negative for acute or sub-acute infarction. ORBITS: No masses. Globes normal. PARANASAL SINUSES: No fluid levels. Mucosa normal. OTHER: No other significant finding. IMPRESSION: MINIMAL MICROVASCULAR ISCHEMIC CHANGE. OTHERWISE NORMAL STUDY. EVIDENCE OF ACUTE STROKE: NO. TECHNICAL DOCUMENTATION: JOB ID: [id number] [employer]- All Rights Reserved Reading location - IP/workstation name: [email or web address]
--- NOTE | 2018-11-27 16:17 | PDOC PROGRESS REPORT ---
Subjective Progress Note for:: 11/27/18 Subjective:: This is a 63 year old female who does not see a regular physician due to not having insurance who presented with left leg weakness and numbness which developed last Thursday. She was admitted for presumed subacute CVA. 11/25: MRI brain was a limited/suboptimal study but no signs of infarction was noted. On reassessment this morning, her left leg weakness appears to have slightly improved. She has good strength on flexion/extension of her ankles (4/5) and appears to have a more proximal weakness when asked to bend her left knee or flex her hip (2/5). She says the numbness has also improved and is almost back to baseline. Tried to stand patient up with staff and she is not able to do so due to left LE weakness. Clonus and Babinski not appreciated on both sides. 11/26: She continues to have left leg weakness albeit it has improved compared to when she presented it. She says the numbness has resolved. She has been evaluated by PT and she is not able to stand and support herself. Recommended SNF/rehab. She may benefit from acute rehab, will consult Dr. Lopez for evaluation. 11/27: No acute event overnight. She continues to have left proximal lower extremity weakness. She is still not able to stand or support her body well. Called by Dr. Lopez who recommended repeating the brain MRI as it was a poor study. Reason For Visit: SUBACUTE CVA Physical Exam Vital Signs: Temp Pulse Resp BP Pulse Ox 97.7 F 82 14 149/71 H 100 11/27/18 12:18 11/27/18 14:00 11/27/18 12:18 11/27/18 12:18 11/27/18 12:18 Intake & Output 11/26/18 11/27/18 11/28/18 06:59 06:59 06:59 Intake Total 1130 550 115 Output Total 700 250 175 Balance 430 300 -60 Weight 93 lb 0.561 oz 116 lb 9.992 oz General appearance: PRESENT: no acute distress, well-developed, well-nourished Head exam: PRESENT: atraumatic, normocephalic Eye exam: PRESENT: conjunctiva pink, EOMI, PERRLA. ABSENT: scleral icterus Ear exam: PRESENT: normal external ear exam Mouth exam: PRESENT: moist, tongue midline Neck exam: ABSENT: carotid bruit, JVD, lymphadenopathy, thyromegaly Respiratory exam: PRESENT: clear to auscultation avinash. ABSENT: rales, rhonchi, wheezes Cardiovascular exam: PRESENT: RRR. ABSENT: diastolic murmur, rubs, systolic murmur Pulses: PRESENT: normal dorsalis pedis pul GI/Abdominal exam: PRESENT: normal bowel sounds, soft. ABSENT: distended, guarding, mass, organolmegaly, rebound, tenderness Rectal exam: PRESENT: deferred Neurological exam: PRESENT: alert, awake, oriented to person, oriented to place, oriented to time, oriented to situation, CN II-XII grossly intact, motor sensory deficit - +left LE weakness Results Laboratory Results: 11/25/18 16:23 11/25/18 16:23 11/26/18 15:50 Phosphorus 3.3 11/24/18 11/24/18 15:41 15:41 Creatine Kinase 116 CK-MB (CK-2) 0.79 Troponin I < 0.012 Impressions: Chest X-Ray 11/24/18 14:52 IMPRESSION: NO ACUTE RADIOGRAPHIC FINDING IN THE CHEST. Head CT 11/24/18 14:53 IMPRESSION: No acute intracranial pathology. EVIDENCE OF ACUTE STROKE: NO. Hip X-Ray 11/25/18 12:01 IMPRESSION: NEGATIVE STUDY OF THE LEFT HIP AND PELVIS. NO RADIOGRAPHIC EVIDENCE OF ACUTE INJURY. Lumbar Spine MRI 11/26/18 00:00 IMPRESSION: Facet arthropathy. No acute findings. Head MRI 11/27/18 10:37 IMPRESSION: MINIMAL MICROVASCULAR ISCHEMIC CHANGE. OTHERWISE NORMAL STUDY. EVIDENCE OF ACUTE STROKE: NO. Assessment and Plan - Diagnosis (1) CVA (cerebral vascular accident) Is this a current diagnosis for this admission?: Yes Plan: Patient is presenting with new left leg weakness noticed when she woke up last Thursday morning. She likely now has subacute CVA. She has 2/5 motor strength on the left leg, slightly reduced sensation to touch on left leg CT head is negative. 11/25: MRI head was unrevealing for CVA but study was suboptimal/poor one. Carotid doppler and tele monitoring were also unremarkable. MRI brain was a limited study but no signs of infarction was noted. On reassessment this morning, her left leg weakness appears to have slightly improved. She has good strength on flexion/extension of her ankles (4/5) and appears to have a more proximal weakness when asked to bend her left knee or flex her hip (2/5). She says the numbness has also improved and is almost back to baseline. Tried to stand patient up with staff and she is not able to do so due to left LE weakness. Clonus and Babinski not appreciated on both sides. 11/26: She continues to have left leg weakness albeit it has improved compared to when she presented it. Lumbosacral MRI was negative. She says the numbness has resolved. She has been evaluated by PT and she is not able to stand and support herself. Recommended SNF/rehab. She may benefit from acute rehab, will consult Dr. Lopez for evaluation. 11/27: She continues to have left proximal lower extremity weakness. She is still not able to stand or support her body well. Called by Dr. Lopez who recommended repeating the brain MRI as it was a poor study. (2) Hypertension Is this a current diagnosis for this admission?: Yes Plan: Blood pressure in the 180/90. She is not on any antihypetensive. She is tachycardic in the 110s. Will start Carvedilol. Hydralazine rpn. Will adjust or add antihypertensive depending on subsequent blood pressures. 11/25: Increase Coreg to 12.5 mg bid. 11/26: Controlled. Continue Coreg. (3) Diabetes mellitus Is this a current diagnosis for this admission?: Yes Plan: She reports a history of gestational DM and says she uses a 70/30. She says she was on 25 u bid before but is only using 2 u once a day now. Will check an Hba1c. She needs further diabetic education if her A1c is still in diabetic range. 11/25: Hba1c came back at 6.4. Advised patient she does not need to continue her insulin at home. (4) Malnutrition Is this a current diagnosis for this admission?: Yes Plan: Will consult dietitian for recommendations. Patient also reports of poor intake due to her chronic dental pain and dental issues. Appreciate dietitian recommendation. - Time Time Spent with patient: 25-34 minutes
--- NOTE | 2018-11-27 18:36 | RADIOLOGY REPORT (SQ) ---
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 TECHNIQUE: Sagittal and Axial imaging includes T1, T2, STIR and gradient echo sequences. LIMITATIONS: Some motion artifact. The technologist note states that the patient refused additional scanning FINDINGS: ALIGNMENT: Normal. VERTEBRAE: Cervical vertebrae are intact. BONE MARROW: Somewhat heterogenous marrow signal, particularly in the lower vertebral bodies. DISCS: Normal. No significant abnormal signal or loss of height. HARDWARE: None in the spine. CORD AND BASE OF BRAIN: Normal in size and signal intensity. SOFT TISSUES: No soft tissue masses. C1-C2: No significant spinal stenosis. C2-C3: Small central disc protrusion with mild impingement of the cord. No significant spinal stenos is or exit foraminal stenosis. C3-C4: Small central disc protrusion with mild impingement of the cord. No significant spinal stenos is or exit foraminal stenosis. C4-C5: No significant spinal stenosis or exit foraminal stenosis. C5-C6: No significant spinal stenosis or exit foraminal stenosis. C6-C7: No significant spinal stenosis or exit foraminal stenosis. C7-T1: No significant spinal stenosis or exit foraminal stenosis. UPPER THORACIC: Incompletely imaged. There is prominent compression deformity of the T2 and T3 verte bral bodies with posterior bulging of the backwall of the the vertebral body into the spinal canal. This does causes narrowing of the spinal canal with impingement on the upper thoracic cord. There is questionable soft tissue signal in the anterior epidural space on sagittal images but on axial image s this is less noticeable. OTHER: No other significant finding. IMPRESSION: 1. ABNORMAL FINDINGS IN THE VISUALIZED UPPER THORACIC SPINE DESCRIBED ABOVE. COMPRESSION FRACTURE S WITH ENCROACHMENT UPON THE SPINAL CANAL AND IMPINGEMENT UPON THE UPPER THORACIC CORD. SOMEWHAT HET EROGENOUS MARROW SIGNAL WHICH MAY BE DUE TO MARROW EDEMA ALTHOUGH CANNOT EXCLUDE POSSIBLE MARROW REPL ACEMENT/METASTATIC INVOLVEMENT. QUESTIONABLE SOFT TISSUE SIGNAL IN THE ANTERIOR EPIDURAL SPACE, DIFF ICULT TO COMPLETELY VISUALIZE. WOULD RECOMMEND AN MRI OF THE THORACIC SPINE WITHOUT AND WITH CONTRAS T WITH ATTENTION TO THE UPPER THORACIC REGION TO MORE COMPLETELY VISUALIZE THESE FINDINGS. 2. SMALL CENTRAL DISC PROTRUSIONS AT C2-C3 AND C3-C4 WITH MILD IMPINGEMENT OF THE CORD. 3. SOMEWHAT HETEROGENOUS MARROW SIGNAL IN THE LOWER CERVICAL VERTEBRAE. AGAIN, CANNOT EXCLUDE THE PO SSIBILITY OF MARROW REPLACEMENT/METASTATIC INVOLVEMENT. TECHNICAL DOCUMENTATION: JOB ID: [id number] [employer]- All Rights Reserved Reading location - IP/workstation name: [email or web address]
--- NOTE | 2018-11-27 19:27 | PDOC TRANSFER SUMMARY ---
General Admission Date/PCP: 11/24/18 18:04 Resuscitation Status: Full Code - Transfer Diagnosis (1) CVA (cerebral vascular accident) Is this a current diagnosis for this admission?: Yes (2) Hypertension Is this a current diagnosis for this admission?: Yes (3) Diabetes mellitus Is this a current diagnosis for this admission?: Yes (4) Malnutrition Is this a current diagnosis for this admission?: Yes - Transfer Medications Home Medications: Hum Insulin NPH/Reg Insulin Hm [Insulin Inj 70-30 (100 Unit/1 ml) 3 ml Vial] 0 unit SUBCUT .SLIDING SCALE 11/25/18 Transfer Medications: Current Medications Acetaminophen (Tylenol 325 Mg Tablet) 650 mg PO Q8HP PRN PRN Reason: PAIN/FEVER Stop: 12/24/18 23:14 Last Admin: 11/26/18 23:25 Dose: 650 mg Documented by: Amoxicillin/Clavulanate Potassium (Augmentin 500-125 Tablet) 1 tab PO Q8 ALEJANDRA Stop: 12/02/18 21:59 Last Admin: 11/27/18 14:04 Dose: 1 tab Documented by: Aspirin (Aspirin 81 Mg Chewable Tablet) 81 mg PO DAILY ALEJANDRA Stop: 12/25/18 09:59 Last Admin: 11/27/18 10:02 Dose: 81 mg Documented by: Atorvastatin Calcium (Lipitor 40 Mg Tablet) 40 mg PO QHS ALEJANDRA Stop: 12/24/18 21:59 Last Admin: 11/26/18 21:34 Dose: Not Given Documented by: Carvedilol (Coreg 12.5 Mg Tablet) 12.5 mg PO Q12 ALEJANDRA Stop: 12/25/18 21:59 Last Admin: 11/27/18 10:01 Dose: 12.5 mg Documented by: Fondaparinux (Arixtra Inj 2.5 Mg/0.5 Ml Disp.Syrin) 2.5 mg SUBCUT QAM [facility] Stop: 12/25/18 07:59 Last Admin: 11/27/18 10:02 Dose: 2.5 mg Documented by: Hydralazine HCl (Apresoline Inj/Pf 20 Mg/1 Ml Sdv) 10 mg IV Q6HP PRN PRN Reason: for SBP>170 or DBP>100 Stop: 12/24/18 18:03 Sodium Chloride (Nacl 0.9% 1000 Ml Iv Soln) 1,000 mls @ 75 mls/hr IV CONTINUOUS PRN PRN Reason: THIS MED IS NOT "PRN" Stop: 12/25/18 14:41 Senna/Docusate Sodium (Senna Plus Tablet) 1 each PO BIDP PRN PRN Reason: CONSTIPATION Stop: 12/25/18 16:46 Last Admin: 11/25/18 18:04 Dose: 1 each Documented by: Sodium Chloride (Saline Flush 2.5 Ml Monoject Prefil Syrin) 2.5 ml IV Q8 ALEJANDRA Stop: 12/24/18 21:59 Last Admin: 11/27/18 14:04 Dose: 2.5 ml Documented by: - Allergies Allergies/Adverse Reactions: enalapril Allergy (Verified 11/24/18 14:38) wheat Allergy (Verified 11/25/18 02:09) Hospital Course Hospital Course: This is a 63 year old female who does not see a regular physician due to not having insurance who presented with left leg weakness and numbness which developed last Thursday. She was admitted for presumed subacute CVA. Initial MRI of the head was suboptimal but was negative for CVA. She continued to have left leg weakness more proximal and noticeable on attempt to flex the left knee and thigh. Patient has not been cooperative with MRI studies as she says it is uncomfortable and was refusing medication to help her calm down during procedure. Discussed with radiology. MRI of the spine was pursued and came back remarkable for compression fractures on the T2-T3 level and possible m ass causing impingement. Patient will be transferred to tertiary care for neurosurgical management. She will also be started on decadron. Physical Exam Vital Signs: Temp Pulse Resp BP Pulse Ox 97.5 F 87 14 167/66 H 100 11/27/18 16:02 11/27/18 16:02 11/27/18 16:02 11/27/18 16:02 11/27/18 16:02 Intake & Output 11/26/18 11/27/18 11/28/18 06:59 06:59 06:59 Intake Total 1130 550 233 Output Total 700 250 225 Balance 430 300 8 Weight 93 lb 0.561 oz 116 lb 9.992 oz General appearance: PRESENT: no acute distress, well-developed, well-nourished Head exam: PRESENT: atraumatic, normocephalic Eye exam: PRESENT: conjunctiva pink, EOMI, PERRLA. ABSENT: scleral icterus Ear exam: PRESENT: normal external ear exam Mouth exam: PRESENT: moist, tongue midline Neck exam: ABSENT: carotid bruit, JVD, lymphadenopathy, thyromegaly Respiratory exam: PRESENT: clear to auscultation avinash. ABSENT: rales, rhonchi, wheezes Cardiovascular exam: PRESENT: RRR. ABSENT: diastolic murmur, rubs, systolic murmur Pulses: PRESENT: normal dorsalis pedis pul GI/Abdominal exam: PRESENT: normal bowel sounds, soft. ABSENT: distended, guarding, mass, organolmegaly, rebound, tenderness Rectal exam: PRESENT: deferred Neurological exam: PRESENT: alert, awake, oriented to person, oriented to place, oriented to time, oriented to situation, CN II-XII grossly intact, motor sensory deficit - left leg weakness Results Laboratory Results: 11/25/18 16:23 11/25/18 16:23 11/24/18 11/24/18 15:41 15:41 Creatine Kinase 116 CK-MB (CK-2) 0.79 Troponin I < 0.012 Impressions: Chest X-Ray 11/24/18 14:52 IMPRESSION: NO ACUTE RADIOGRAPHIC FINDING IN THE CHEST. Head CT 11/24/18 14:53 IMPRESSION: No acute intracranial pathology. EVIDENCE OF ACUTE STROKE: NO. Hip X-Ray 11/25/18 12:01 IMPRESSION: NEGATIVE STUDY OF THE LEFT HIP AND PELVIS. NO RADIOGRAPHIC EVIDENCE OF ACUTE INJURY. Lumbar Spine MRI 11/26/18 00:00 IMPRESSION: Facet arthropathy. No acute findings. Cervical Spine MRI 11/26/18 16:31 IMPRESSION: 1. ABNORMAL FINDINGS IN THE VISUALIZED UPPER THORACIC SPINE DESCRIBED ABOVE. COMPRESSION FRACTURES WITH ENCROACHMENT UPON THE SPINAL CANAL AND IMPINGEMENT UPON THE UPPER THORACIC CORD. SOMEWHAT HETEROGENOUS MARROW SIGNAL WHICH MAY BE DUE TO MARROW EDEMA ALTHOUGH CANNOT EXCLUDE POSSIBLE MARROW REPLACEMEN T/METASTATIC INVOLVEMENT. QUESTIONABLE SOFT TISSUE SIGNAL IN THE ANTERIOR EPIDURAL SPACE, DIFFICULT TO COMPLETELY VISUALIZE. WOULD RECOMMEND AN MRI OF THE THORACIC SPINE WITHOUT AND WITH CONTRAST WITH ATTENTION TO THE UPPER THORACIC REGION TO MORE COMPLETELY VISUALIZE THESE FINDINGS. 2. SMALL CENTRAL DISC PROTRUSIONS AT C2-C3 AND C3-C4 WITH MILD IMPINGEMENT OF THE CORD. 3. SOMEWHAT HETEROGENOUS MARROW SIGNAL IN THE LOWER CERVICAL VERTEBRAE. AGAIN, CANNOT EXCLUDE THE POSSIBILITY OF MARROW REPLACEMENT/METASTATIC INVOLVEMENT. Head MRI 11/27/18 10:37 IMPRESSION: MINIMAL MICROVASCULAR ISCHEMIC CHANGE. OTHERWISE NORMAL STUDY. EVIDENCE OF ACUTE STROKE: NO.
[2018-11-27] MEDS ORDERED: DEXAMETHASONE SOD PHOSPHATE INJ 4 MG/1 ML VIAL IV ONE (20:30)
[2018-11-27] MEDS: ATORVASTATIN CALCIUM 40 MG TABLET PO SCH (22:18)
[2018-11-27 23:37] VITALS: BP 156/64
[2018-11-28] MEDS ORDERED: DEXAMETHASONE SOD PHOSPHATE INJ 4 MG/1 ML VIAL IV SCH (06:00)
== END 2018-11-28 00:05 | disposition short-term general hospital (02) ==
LOC: ER 14:26 → EH 18:04 → INTOOBSV 18:04 → 3W 20:45
PROVIDERS: ADMIT Internal Medicine; ATTEND Internal Medicine
DX: I63.9 Cerebral infarction, unspecified (principal); I10 Essential (primary) hypertension; E11.9 Type 2 diabetes mellitus without complications; E46 Unspecified protein-calorie malnutrition; K08.89 Other specified disorders of teeth and supporting structures; M48.54XA Collapsed vertebra, not elsewhere classified, thoracic region, initial encounter for fracture; K59.00 Constipation, unspecified; R00.0 Tachycardia, unspecified; F17.200 Nicotine dependence, unspecified, uncomplicated; R20.0 Anesthesia of skin; R29.898 Other symptoms and signs involving the musculoskeletal system; R26.89 Other abnormalities of gait and mobility; R29.704 NIHSS score 4; Z86.32 Personal history of gestational diabetes; Z59.8 Other problems related to housing and economic circumstances
CPT/HCPCS: 93005; 99285; 96360; 36415 ×3; 87040; 87086; 82553; 82962 ×2; 82550; 83735; 84100; 84443; 85025 ×2; 85610; 80053 ×2; 81001; 84484; 83036; 80061; 93880; 70551 ×2; 72141; 72148; 71045; 73502; 70450; 93010; 97163; 97167; G0378 ×6; J1100; J3490 ×5; J1652 ×2; J7030; J7040